=== PATIENT | male | born 1960 | race Two or more races ===

== ENCOUNTER 2024-02-29 08:00 | Inpatient (IN) | payer OTHER ==
[~2024-02-29] VITALS: Ht 172.7 cm; Wt 103.4 kg
[2024-02-29 09:43] LABS: HEMATOCRIT 41.5 % (39.0-48.0); HEMOGLOBIN 14.3 g/dL (13-16.00); MEAN CELL VOLUME 92.4 fL (80.0-100.00); MEAN CORPUSCULAR HEMOGLOBIN 31.8 pg (27.00-32.0); MEAN CORPUSCULAR HGB CONC 34.5 g/dl (32.0-36.0); PLATELET COUNT 227 K/uL (150-450); RED CELL DISTRIBUTION WIDTH 12.8 % (11.5-14.5)
[2024-02-29 10:02] LABS: PH,URINE 6.5 (5.0-8.0); URINE APPEARANCE Clear; URINE BILIRRUBIN Negative (NEGATIVE); URINE BLOOD Negative; URINE COLOR Yellow; URINE GLUCOSE Negative (NEGATIVE); URINE KETONE Trace (NEGATIVE); URINE LEUKOCYTE Negative; URINE NITRATE Negative; URINE PROTEIN Trace (NEGATIVE)
[2024-02-29 10:03] LABS: URINE BACTERIA 13.8 uL (0.0-1933); URINE RBC 2.1 uL (0.0-20.8); URINE WBC 1.8 uL (0.0-23.2)
[2024-02-29 10:08] LABS: INR 1.01; PARTIAL THROMBOPLASTIN TIME 29.3 SECONDS (22.0-34.0)
[2024-02-29] MEDS ORDERED: PRAVASTATIN SOD20 MG PO (10:09)
[2024-02-29] MEDS ORDERED: MELOXICAM15 MG PO (10:09)
[2024-02-29] MEDS ORDERED: VIT D3-VIT K21 EACH PO (10:10)
[2024-02-29 10:11] LABS: PROTHROMBIN TIME 10.6 SECONDS (9.0-11.5)
[2024-02-29] MEDS ORDERED: PROSTEON TABLE1 EACH (10:11)
[2024-02-29 10:17] LABS: URINE EPITHELIAL CELLS 1.2 uL (0.0-38.8)
[2024-02-29 10:22] LABS: BILIRUBIN TOTAL 0.94 mg/dL (0.3-1.2); CALCIUM 9.1 mg/dL (8.5-10.1); CREATININE SERUM 0.91 mg/dL (0.70-1.30); GFR 84.15; GLOBULINA 3.5 G/DL (2.4-3.5); POTASSIUM 4.46 mEq/L (3.5-5.1); TOTAL PROTEIN 7.5 gm/dL (6.4-8.2)
[2024-03-06] MEDS ORDERED: TRANEXAMIC ACID 100MG/1ML (1000MG) AMPUL IV ONE ×4 (10:20→13:15)
[2024-03-06] MEDS ORDERED: CEFOXITIN SODIUM 2,000 MG VIAL IV ONE ×2 (10:20→13:15)
[2024-03-06] MEDS ORDERED: KETOROLAC TROMETHAMINE 60 MG VIAL IM ONE ×3 (11:20→16:01)
[2024-03-06] MEDS ORDERED: METHYLPREDNISOLONE ACETATE 80 MG/ML VIAL ONE (11:21)
[2024-03-06] MEDS ORDERED: BUPIVACAINE HCL/Mpf 0.5% 10ML VIAL ONE ×2 (11:21→16:01)
[2024-03-06] MEDS ORDERED: LIDOCAINE HCL 1%/EPINEPHRINE 20ML VIAL IJ ONE ×2 (11:21→13:15)
[2024-03-06] MEDS ORDERED: VANCOMYCIN HCL 1,000 MG VIAL ONE (11:21)
[2024-03-06] MEDS ORDERED: POLYMYXIN B SULFATE 500,000 U VIAL ONE (11:25)
[2024-03-06] MEDS ORDERED: MORPHINE SULFATE 4 MG/ML VIAL IV ONE (13:15)
[2024-03-06] MEDS ORDERED: POLYMYXIN B SULFATE 500,000 U VIAL IR ONE (13:15)
[2024-03-06] MEDS ORDERED: BUPIVACAINE HCL 30 ML VIAL IJ ONE (13:15)
[2024-03-06] MEDS ORDERED: METHYLPREDNISOLONE ACETATE 80 MG/ML VIAL IJ ONE (13:15)
[2024-03-06] MEDS ORDERED: VANCOMYCIN HCL 1,000 MG VIAL IR ONE (13:15)
[2024-03-06] MEDS ORDERED: THROMBIN,HU/FIBRINOGEN/CALCIUM 10 ML SYRINGE TOP ONE ×2 (15:19→16:00)
[2024-03-06] MEDS ORDERED: CEFAZOLIN SODIUM 1,000 MG VIAL ONE ×2 (16:09→18:44)
[2024-03-06] MEDS ORDERED: MORPHINE SULFATE 2 MG/ML CARTRIDGE IV ONE (16:15)
[2024-03-06] MEDS ORDERED: MORPHINE SULFATE 4 MG/ML VIAL IV PRN (16:15)
[2024-03-06] MEDS ORDERED: ONDANSETRON HCL 2 MG/ML VIAL IV PRN (16:15)
[2024-03-06] MEDS ORDERED: SODIUM CHLORIDE 0.45 % 1,000 ML IV SCH (16:15)
[2024-03-06] MEDS ORDERED: GENTAMICIN SULFATE 40 MG/ML VIAL IV SCH ×2 (16:20→21:00)
[2024-03-06] MEDS ORDERED: CEFAZOLIN SODIUM 1,000 MG VIAL IV ONE (17:00)
[2024-03-06] MEDS ORDERED: ONDANSETRON HCL 2 MG/ML VIAL ONE (17:46)
[2024-03-06] MEDS ORDERED: CEFAZOLIN SODIUM 1,000 MG VIAL IV SCH (18:00)
[2024-03-06] MEDS ORDERED: GENTAMICIN SULFATE 40 MG/ML VIAL ONE (18:44)
[2024-03-06 19:29] LABS: HEMOGLOBIN 12.3 g/dL (13-16.00); RED BLOOD COUNT 3.89 M/uL (4.00-6.00)
[2024-03-07] MEDS ORDERED: TRAMADOL HCL 50 MG TABLET PO PRN (06:45)
[2024-03-07 07:05] LABS: HEMATOCRIT 34.2 % (39.0-48.0); HEMOGLOBIN 11.9 g/dL (13-16.00); MEAN CELL VOLUME 91.9 fL (80.0-100.00); MEAN CORPUSCULAR HGB CONC 34.8 g/dl (32.0-36.0); PLATELET COUNT 198 K/uL (150-450); RED BLOOD COUNT 3.72 M/uL (4.00-6.00); RED CELL DISTRIBUTION WIDTH 12.7 % (11.5-14.5)
[2024-03-07] MEDS ORDERED: RIVAROXABAN 10 MG TAB PO SCH (09:00)
[2024-03-07] MEDS ORDERED: SENNA/DOCUSATE SODIUM 1 TAB TABLET PO SCH (09:00)
[2024-03-07] MEDS ORDERED: BACITRACIN 28.35 GM OINT.TUBE TOP SCH (09:00)
[2024-03-07] MEDS ORDERED: IRON FUM,PS/FOLIC/BCOMP,C NO.9 1 CAP CAPSULE PO SCH (09:00)
[2024-03-08 07:40] LABS: HEMATOCRIT 28.3 % (39.0-48.0); MEAN CELL VOLUME 90.2 fL (80.0-100.00); MEAN CORPUSCULAR HEMOGLOBIN 31.9 pg (27.00-32.0); MEAN CORPUSCULAR HGB CONC 35.3 g/dl (32.0-36.0); PLATELET COUNT 178 K/uL (150-450); RED BLOOD COUNT 3.13 M/uL (4.00-6.00); RED CELL DISTRIBUTION WIDTH 13.1 % (11.5-14.5)
[2024-03-08] MEDS ORDERED: TRAMADOL HCL50 MG PO (13:15)
[2024-03-08] MEDS ORDERED: Septra Ds Tablet PO (13:15)
[2024-03-08] MEDS ORDERED: INTEGRA PLUS C1 EACH PO (13:15)
[2024-03-08] MEDS ORDERED: XARELTO10 MG PO (13:15)
[2024-03-08] MEDS ORDERED: SULFAMETHOXAZOLE/TRIMETHOPRIM DS 1 TAB PO SCH (21:00)
== END 2024-03-08 15:18 | DRG 470 ==
LOC: SURH 03-06 08:00 → O/R 03-06 09:44 → SURG 03-06 16:00
PROVIDERS: ADMIT Orthopaedic Surgery Sports Medicine; ATTEND Orthopaedic Surgery Sports Medicine
PROC: 0SR90JZ Replacement of Right Hip Joint with Synthetic Substitute, Open Approach (ICD-10-PCS; principal; 2024-03-06 08:30)
DX: M16.11 Unilateral primary osteoarthritis, right hip (principal)

== ENCOUNTER 2024-03-17 13:55 | Emergency (ER) | payer OTHER ==
[~2024-03-17] VITALS: Ht 172.7 cm; Wt 108.0 kg
[~2024-03-17 13:55] MED LIST: INTEGRA PLUS C1 EACH PO; MELOXICAM15 MG PO; PRAVASTATIN SOD20 MG PO; PROSTEON TABLE1 EACH; Septra Ds Tablet PO; TRAMADOL HCL50 MG PO; VIT D3-VIT K21 EACH PO; XARELTO10 MG PO
[2024-03-17 16:09] LABS: HEMATOCRIT 28.7 % (39.0-48.0); HEMOGLOBIN 9.8 g/dL (13-16.00); MEAN CELL VOLUME 93.4 fL (80.0-100.00); MEAN CORPUSCULAR HEMOGLOBIN 31.7 pg (27.00-32.0); PLATELET COUNT 472 K/uL (150-450); RED BLOOD COUNT 3.07 M/uL (4.00-6.00); RED CELL DISTRIBUTION WIDTH 13.5 % (11.5-14.5)
[2024-03-17 16:24] LABS: CALCIUM 8.6 mg/dL (8.5-10.1); CREATININE SERUM 0.94 mg/dL (0.70-1.30); GFR 81.05; POTASSIUM 4.55 mEq/L (3.5-5.1)
[2024-03-17 16:31] LABS: D DIMER 5.92 MG/L; INR 1.12; PARTIAL THROMBOPLASTIN TIME 34.7 SECONDS (22.0-34.0); PROTHROMBIN TIME 12.1 SECONDS (9.0-11.5)
== END 2024-03-17 17:26 ==
LOC: ER 13:57
PROVIDERS: Nurse Practitioner Family
DX: I87.2 Venous insufficiency (chronic) (peripheral) (principal); M79.89 Other specified soft tissue disorders

== ENCOUNTER 2024-03-17 21:18 | Emergency (ER) | payer OTHER ==
[~2024-03-17] VITALS: Ht 177.8 cm; Wt 102.1 kg
[2024-03-18] MEDS ORDERED: FAMOTIDINE/PF 20 MG/2 ML VIAL ONE (00:56)
[2024-03-18] MEDS ORDERED: POVIDONE-IODINE 118 ML BOTT TOP ONE (01:12)
== END 2024-03-18 01:27 | disposition home or self-care (01) ==
LOC: ER 21:20
DX: L76.34 Postprocedural seroma of skin and subcutaneous tissue following other procedure (principal)

== ENCOUNTER 2024-03-24 05:56 | Inpatient (IN) | payer OTHER ==
[~2024-03-24] VITALS: Ht 172.7 cm; Wt 103.4 kg
[2024-03-24] MEDS ORDERED: RINGERS SOLUTION,LACTATED 1,000 ML IV STA (06:56)
[2024-03-24 07:46] LABS: HEMATOCRIT 27.9 % (39.0-48.0); HEMOGLOBIN 9.6 g/dL (13-16.00); MEAN CELL VOLUME 93.2 fL (80.0-100.00); MEAN CORPUSCULAR HEMOGLOBIN 31.9 pg (27.00-32.0); MEAN CORPUSCULAR HGB CONC 34.2 g/dl (32.0-36.0); PLATELET COUNT 423 K/uL (150-450); RED CELL DISTRIBUTION WIDTH 14.4 % (11.5-14.5)
[2024-03-24 07:53] LABS: ERYTHROCYTE SEDIMENTATION RATE 36 mm/hr
[2024-03-24 08:00] VITALS: BP 146/86; O2SAT 97
[2024-03-24 08:01] LABS: URINE APPEARANCE Clear; URINE BILIRRUBIN Negative (NEGATIVE); URINE BLOOD Negative; URINE COLOR Yellow; URINE GLUCOSE Negative (NEGATIVE); URINE KETONE Negative (NEGATIVE); URINE LEUKOCYTE Negative; URINE NITRATE Negative; URINE PROTEIN Negative (NEGATIVE)
[2024-03-24 08:04] LABS: URINE BACTERIA 7.5 uL (0.0-1933)
[2024-03-24 08:06] LABS: URINE CAST 0.15 uL (0.0-1.40); URINE EPITHELIAL CELLS 1.2 uL (0.0-38.8); URINE RBC 1.2 uL (0.0-20.8)
[2024-03-24 08:43] LABS: INR 1.07; PARTIAL THROMBOPLASTIN TIME 29.3 SECONDS (22.0-34.0); PROTHROMBIN TIME 11.6 SECONDS (9.0-11.5)
[2024-03-24] MEDS ORDERED: ACETAMINOPHEN 325 MG TABLET PO PRN (08:45)
[2024-03-24 08:47] VITALS: BP 130/80
[2024-03-24 08:51] LABS: ALBUMIN 2.9 gm/dL (3.4-5.0); BILIRUBIN TOTAL 0.37 mg/dL (0.3-1.2); CALCIUM 8.6 mg/dL (8.5-10.1); CREATININE SERUM 1.11 mg/dL (0.70-1.30); GFR 66.91; GLOBULINA 3.9 G/DL (2.4-3.5); POTASSIUM 4.78 mEq/L (3.5-5.1); TOTAL PROTEIN 6.8 gm/dL (6.4-8.2)
[2024-03-24] MEDS ORDERED: IRON FUM,PS/FOLIC/BCOMP,C NO.9 1 CAP CAPSULE PO SCH (09:00)
[2024-03-24 14:06] VITALS: BP 133/62; O2SAT 100
[2024-03-24] MEDS ORDERED: FAMOtidine 20 MG TABLET PO SCH (17:00)
[2024-03-24] MEDS ORDERED: CEFTRIAXONE SODIUM 2,000 MG VIAL IV SCH (17:36)
[2024-03-24] MEDS ORDERED: DOCUSATE SODIUM 100MG CAP PO SCH (21:00)
[2024-03-24] MEDS ORDERED: VANCOMYCIN HCL 1,500 MG in 0.9 % SODIUM CHLORIDE 500 ML IV SCH (21:00)
[2024-03-24] MEDS ORDERED: VANCOMYCIN HCL 1,000 MG,VANCOMYCIN HCL 500 MG IV SCH (21:00)
[2024-03-25 00:24] VITALS: BP 123/60; O2SAT 96
[2024-03-25 08:00] VITALS: BP 138/61; O2SAT 98
[2024-03-25 08:25] LABS: HEMATOCRIT 28.7 % (39.0-48.0); HEMOGLOBIN 9.9 g/dL (13-16.00); MEAN CELL VOLUME 93.3 fL (80.0-100.00); MEAN CORPUSCULAR HGB CONC 34.4 g/dl (32.0-36.0); PLATELET COUNT 402 K/uL (150-450); RED BLOOD COUNT 3.07 M/uL (4.00-6.00); RED CELL DISTRIBUTION WIDTH 14.7 % (11.5-14.5)
[2024-03-25 08:33] LABS: ALBUMIN 2.9 gm/dL (3.4-5.0); BILIRUBIN TOTAL 0.45 mg/dL (0.3-1.2); CALCIUM 8.4 mg/dL (8.5-10.1); CREATININE SERUM 0.95 mg/dL (0.70-1.30); GFR 80.07; GLOBULINA 3.1 G/DL (2.4-3.5); MAGNESIUM 2.3 mg/dL (1.8-2.4); PHOSPHOROUS 3.3 mg/dL (2.5-4.9); POTASSIUM 4.76 mEq/L (3.5-5.1)
[2024-03-25 08:34] LABS: C-REACTIVE PROTEIN 0.5 MG/DL (0.00-0.29)
[2024-03-25 16:00] VITALS: BP 140/66; O2SAT 99
[2024-03-25] MEDS ORDERED: VANCOMYCIN HCL 5 MG/ML REDILUIDO IV SCH (21:00)
[2024-03-26 00:23] VITALS: BP 123/59; O2SAT 98
[2024-03-26 08:00] VITALS: BP 131/75; O2SAT 99
[2024-03-26 16:00] VITALS: BP 134/63; O2SAT 96
[2024-03-27 00:31] VITALS: BP 133/61; O2SAT 100
[2024-03-27 08:00] VITALS: BP 111/66; O2SAT 96
[2024-03-27] MEDS ORDERED: ELIQUIS2.5 MG PO (11:50)
== END 2024-03-27 14:50 | disposition home or self-care (01) | DRG 921 ==
LOC: ER 05:57 → SURH 08:27 → SEC-K 08:27 → SURH 10:48
PROVIDERS: Internal Medicine Infectious Disease; ADMIT Orthopaedic Surgery Sports Medicine; ATTEND Orthopaedic Surgery Sports Medicine
PROC: BW2GYZZ Computerized Tomography (CT Scan) of Pelvic Region using Other Contrast (ICD-10-PCS; principal; 2024-03-25)
DX: L76.32 Postprocedural hematoma of skin and subcutaneous tissue following other procedure (principal); D64.89 Other specified anemias; G47.33 Obstructive sleep apnea (adult) (pediatric); Z96.641 Presence of right artificial hip joint
CPT/HCPCS: 72191

== ENCOUNTER 2025-01-30 07:00 | Inpatient (IN) | payer OTHER ==
[~2025-01-30] VITALS: Ht 170.2 cm; Wt 102.1 kg
[~2025-01-30 07:00] MED LIST changes: +ELIQUIS2.5 MG PO
[2025-01-30] MEDS ORDERED: VITAMIN D31 ML (07:54)
[2025-01-30] MEDS ORDERED: [UNRECOGNIZED DRUG - OTHER] (07:55)
[2025-01-30 08:07] VITALS: BP 134/83
[2025-01-30 08:20] LABS: URINE APPEARANCE Clear; URINE BILIRRUBIN Negative (NEGATIVE); URINE BLOOD Negative; URINE COLOR Yellow; URINE GLUCOSE Negative (NEGATIVE); URINE KETONE Negative (NEGATIVE); URINE LEUKOCYTE Negative; URINE NITRATE Negative; URINE PROTEIN Negative (NEGATIVE); URINE UROBILINOGEN 1.0 E.U./dl
[2025-01-30 08:22] LABS: URINE BACTERIA 14.3 uL (0.0-1933); URINE EPITHELIAL CELLS 1.8 uL (0.0-38.8); URINE RBC 2.0 uL (0.0-20.8); URINE WBC 2.9 uL (0.0-23.2)
[2025-01-30 08:25] LABS: URINE CAST 0.00 uL (0.0-1.40)
[2025-01-30 08:33] LABS: BASO % 1.0 % (0.1-1.2); EOS # 0.17 (0.04-0.54); EOS % 2.8 % (0.7-7.0); LYMPH # 1.06 (1.18-3.74); LYMPH % 17.5 % (19.3-53.1); MEAN PLATELET VOLUME 10.00 fl (9.4-12.4); MONO # 0.47 (0.24-0.82); MONO % 7.8 % (4.7-12.5); NEUT # 4.28 (1.56-6.13); NEUT % 70.6 % (34.0-71.1); RED CELL DISTRIBUTION WIDTH 12.2 % (11.6-14.4)
[2025-01-30 08:54] LABS: INR 0.97
[2025-01-30 09:11] LABS: BUN CREA RATIO 21.0 (7.0-25.0); CREATININE SERUM 0.92 mg/dL (0.70-1.30); GFR 82.83; GLUCOSE FASTING 118.0 mg/dL (65-100); OSMOLALITY SERUM 285.0 MOSM/KG (275-295)
[2025-02-05] MEDS ORDERED: BUPIVACAINE HCL/PF 0.25% 30ML VIAL InF ONE (16:15)
[2025-02-05] MEDS ORDERED: LIDOCAINE HCL 1% 20 ML VIAL IJ ONE (16:15)
[2025-02-05] MEDS ORDERED: KETOROLAC TROMETHAMINE 60 MG VIAL IM ONE (16:15)
[2025-02-05] MEDS ORDERED: CEFAZOLIN SODIUM 1,000 MG VIAL IV ONE (16:15)
[2025-02-05] MEDS ORDERED: MORPHINE SULFATE 4 MG/ML CARTRIDGE IV ONE (16:15)
[2025-02-05] MEDS ORDERED: ISOPROPYL ALCOHOL 30 ML OUNCE TOP ONE (16:15)
[2025-02-05] MEDS ORDERED: THROMBIN,HU/FIBRINOGEN/CALCIUM 4 ML SYRINGE TOP ONE (17:45)
[2025-02-05] MEDS ORDERED: CEFAZOLIN SODIUM 1,000 MG VIAL IV SCH (18:53)
[2025-02-05] MEDS ORDERED: MORPHINE SULFATE 4 MG/ML VIAL IV ONE (19:00)
[2025-02-05] MEDS ORDERED: ONDANSETRON HCL 2 MG/ML VIAL IV PRN (19:00)
[2025-02-05] MEDS ORDERED: SODIUM CHLORIDE 0.45 % 1,000 ML IV SCH (19:00)
[2025-02-05] MEDS ORDERED: MORPHINE SULFATE 4 MG/ML CARTRIDGE IV PRN (19:00)
[2025-02-05] MEDS ORDERED: GENTAMICIN SULFATE 40 MG/ML VIAL IV SCH (21:00)
[2025-02-05 21:22] VITALS: BP 128/72; O2SAT 100
[2025-02-06 01:09] VITALS: BP 116/66; O2SAT 96
[2025-02-06 06:48] LABS: BASO % 0.4 % (0.1-1.2); EOS # 0.07 (0.04-0.54); EOS % 0.9 % (0.7-7.0); LYMPH # 0.95 (1.18-3.74); LYMPH % 11.5 % (19.3-53.1); MEAN PLATELET VOLUME 10.10 fl (9.4-12.4); MONO # 0.74 (0.24-0.82); MONO % 9.0 % (4.7-12.5); NEUT # 6.42 (1.56-6.13); NEUT % 78.0 % (34.0-71.1); RED CELL DISTRIBUTION WIDTH 12.1 % (11.6-14.4)
[2025-02-06 08:36] VITALS: BP 115/67; O2SAT 97
[2025-02-06] MEDS ORDERED: APIXABAN 2.5 MG TABLET PO SCH (09:00)
[2025-02-06] MEDS ORDERED: ACETAMINOPHEN WITH CODEINE 1 UDTAB TABLET PO PRN (09:00)
[2025-02-06] MEDS ORDERED: IRON FUM,PS/FOLIC/BCOMP,C NO.9 1 CAP CAPSULE PO SCH (09:00)
[2025-02-06] MEDS ORDERED: SENNA/DOCUSATE SODIUM 1 TAB TABLET PO SCH (09:00)
[2025-02-06] MEDS ORDERED: BACITRACIN 28.35 GM OINT.TUBE TOP SCH (09:00)
[2025-02-06 12:25] LABS: COVID-19 AG NEGATIVE (NEGATIVE)
[2025-02-06 16:00] VITALS: BP 113/61; O2SAT 95
[2025-02-07 00:19] VITALS: BP 117/79; O2SAT 97
[2025-02-07] MEDS ORDERED: ELIQUIS2.5 MG PO (06:41)
[2025-02-07] MEDS ORDERED: Septra Ds Tablet PO (06:41)
[2025-02-07] MEDS ORDERED: INTEGRA PLUS C1 EACH PO (06:41)
[2025-02-07] MEDS ORDERED: ACETAMINOPHEN-1 EAC2 PO (06:42)
[2025-02-07 07:56] LABS: BASO % 0.6 % (0.1-1.2); EOS # 0.18 (0.04-0.54); EOS % 2.0 % (0.7-7.0); LYMPH # 1.01 (1.18-3.74); LYMPH % 11.4 % (19.3-53.1); MEAN PLATELET VOLUME 10.60 fl (9.4-12.4); MONO # 0.87 (0.24-0.82); MONO % 9.8 % (4.7-12.5); NEUT # 6.70 (1.56-6.13); NEUT % 75.9 % (34.0-71.1); RED CELL DISTRIBUTION WIDTH 12.4 % (11.6-14.4)
[2025-02-07 08:41] VITALS: BP 108/72; O2SAT 98
[2025-02-07] MEDS ORDERED: SULFAMETHOXAZOLE/TRIMETHOPRIM DS 1 TAB PO SCH (09:00)
== END 2025-02-07 15:55 | DRG 470 ==
LOC: SURH 02-05 07:00 → O/R 02-05 14:19 → SURG 02-05 14:19 → SURH 02-05 18:39
PROVIDERS: ADMIT Orthopaedic Surgery Sports Medicine; ATTEND Orthopaedic Surgery Sports Medicine
PROC: 0SRB0JA Replacement of Left Hip Joint with Synthetic Substitute, Uncemented, Open Approach (ICD-10-PCS; principal; 2025-02-05 08:30)
DX: M16.12 Unilateral primary osteoarthritis, left hip (principal); E78.5 Hyperlipidemia, unspecified